=== PATIENT | female | born 1960 | race Caucasian/White ===

== ENCOUNTER 2017-03-18 18:04 | Emergency (ER) | payer BC ==
[~2017-03-18] VITALS: Ht 165.1 cm; Wt 76.0 kg
[~2017-03-18 18:04] MED LIST: AMIT10TA6 PO; HYDR-906 PO; MAG-19 PO; OMEP20CA16 PO; ONDA4TAB14 PO
[2017-03-18 18:09] VITALS: Ht 165.1 cm; Wt 76.0 kg
--- NOTE | 2017-03-18 23:33 | ERA ---
ER Documentation Chief Complaint Date/Time DATE: 03/18/17 TIME: 23:32 Chief Complaint Bloody stool HPI The patient is a 57-year-old female, presenting to the ER because of bloody stool this morning, bright red blood. She denies similar symptoms previously, denies hemorrhoids, constipation. She denies fever, chills, neck pain, chest pain, dyspnea, abdominal pain, dysuria, diarrhea. She had headache yesterday but denies any headache now. She takes Aleve intermittently for her discomfort. She does not smoke nor drink Past medical history: Depression Past surgical history: None ROS All systems reviewed and are negative except as per history of present illness. Medications Home Meds Reported Medications Amitriptyline Hcl* (Amitriptyline Hcl*) 10 Mg Tablet, 20 MG PO QHS, #60 TAB 03/19/17 Discontinued Reported Medications Amitriptyline Hcl* (Amitriptyline Hcl*) Unknown Strength Tablet, PO QHS, #60 TAB 08/17/16 Discontinued Scripts Magaldrate/Simethicone* (Mylanta*) 355 Ml Susp, 30 ML PO QID Y for GASTROINTESTINAL UPSET, #1 BOTTLE Prov:CORRIE ALCAZAR NP 08/17/16 Omeprazole* (Omeprazole*) 20 Mg Capsule.dr, 20 MG PO DAILY, #30 Prov:CORRIE ALCAZAR NP 08/17/16 Ondansetron (Ondansetron Odt) 4 Mg Tab.rapdis, 4 MG PO Q8 Y for NAUSEA AND/OR VOMITING, #30 TAB Prov:CORRIE ALCAZAR NP 08/17/16 Hydrocodone/Acetaminophen ([place] 5-325 Tablet) 1 Each Tablet, 1 TAB PO Q6H Y for PAIN, #20 TAB Prov:CORRIE ALCAZAR NP 08/17/16 Allergies Allergies: Coded Allergies: No Known Allergies (Verified Allergy, Mild, 03/19/17) PMhx/Soc History of Surgery: No Anesthesia Reaction: No Hx Neurological Disorder: No Hx Respiratory Disorders: No Hx Cardiac Disorders: No Hx Miscellaneous Medical Probl: No Hx Alcohol Use: No Hx Substance Use: No Hx Tobacco Use: No Physical Exam Vitals Vital Signs Date Time Temp Pulse Resp B/P Pulse Ox O2 Delivery O2 Flow Rate FiO2 03/18/17 18:09 99.1 101 20 131/78 98 Physical Exam Const: No acute distress. Head: Atraumatic. Eyes: Normal Conjunctiva. ENT: Normal External Ears, Nose and Mouth. Neck: Full range of motion. No meningismus. Resp: Clear to auscultation bilaterally. Cardio: Regular rate and rhythm, no murmurs. Abd: Soft, non distended, normal bowel sounds, non tender. Skin: No petechiae or rashes. Back: No midline or flank tenderness. Ext: No cyanosis, or edema. Neur: Awake and alert. No focal deficit Psych: Normal Mood and Affect. Result Diagram: 03/18/17 2351 03/18/17 2351 Results 24 hrs Laboratory Tests Test 03/18/17 23:51 White Blood Count 4.310^3/ul Red Blood Count 4.4810^6/ul Hemoglobin 13.3g/dl Hematocrit 39.9% Mean Corpuscular Volume 89.1fl Mean Corpuscular Hemoglobin 29.7pg Mean Corpuscular Hemoglobin Concent 33.3g/dl Red Cell Distribution Width 13.8% Platelet Count 21397^3/UL Mean Platelet Volume 9.4fl Neutrophils % 77.5% Lymphocytes % 15.3% Monocytes % 6.5% Eosinophils % 0.2% Basophils % 0.0% Nucleated Red Blood Cells % 0.0/100WBC Neutrophils # 3.410^3/ul Lymphocytes # 0.710^3/ul Monocytes # 0.310^3/ul Eosinophils # 0.010^3/ul Basophils # 0.010^3/ul Nucleated Red Blood Cells # 0.010^3/ul Prothrombin Time 12.9Sec Prothrombin Time Ratio 1.0 INR International Normalized Ratio 0.97 Activated Partial Thromboplast Time 30.1Sec Sodium Level 138mmol/L Potassium Level 3.5mmol/L Chloride Level 105mmol/L Carbon Dioxide Level 27mmol/L Anion Gap 10 Blood Urea Nitrogen 11mg/dl Creatinine 0.52mg/dl Glucose Level 111mg/dl Calcium Level 8.7mg/dl Procedures/[facility] MEDICAL MAKING DECISION: The patient is a 57-year-old female, presenting with acute hematochezia. There is no evidence of acute GI bleed. She is stable for outpatient follow-up The differential diagnoses considered include but are not limited to hemorrhoids , rectal fissure, gastritis, peptic ulcer disease, esophageal varices, [place] tear, carcinoma, polyp, hemorrhoid, fissure, diverticulosis, angiodysplasia. Departure Diagnosis: Primary Impression: Hematochezia Condition: Good Comments I discussed the findings with the patient. I advised the patient to follow-up with the primary physician in about 1-2 days for immediate referral to gastroenterology for colonoscopy, sooner if needed and return if any concern. The patient's blood pressure was elevated (>120/80) but appears stable without evidence of hypertension emergency or urgency. The patient was counseled about the risks of hypertension and urged to pursue outpatient monitoring and therapy within a week with their primary care physician. CAROLE GILLILAND MD March 18, 2017 23:33
[2017-03-19 00:04] LABS: ADD SCAN DIFF NO
[2017-03-19 00:06] LABS: EOSINOPHILS % 0.2 % (0.0-7.0); HEMATOCRIT 39.9 % (37.0-47.0); HEMOGLOBIN 13.3 g/dl (12.0-16.0); LYMPHOCYTES # 0.7 10^3/ul (0.8-2.9); LYMPHOCYTES % 15.3 % (15.0-51.0); MEAN CORPUSCULAR HEMOGLOBIN 29.7 pg (29.0-33.0); MEAN CORPUSCULAR HGB CONC 33.3 g/dl (32.0-37.0); MEAN CORPUSCULAR VOLUME 89.1 fl (82.0-101.0); MEAN PLATELET VOLUME 9.4 fl (7.4-10.4); MONOCYTE # 0.3 10^3/ul (0.3-0.9); MONOCYTES % 6.5 % (0.0-11.0); NEUTROPHIL # 3.4 10^3/ul (1.6-7.5); NEUTROPHILS % 77.5 % (39.0-77.0); PLATELET COUNT 243 10^3/UL (140-415); RED BLOOD COUNT 4.48 10^6/ul (4.20-5.40); RED CELL DISTRIBUTION WIDTH 13.8 % (11.5-14.5); WHITE BLOOD COUNT 4.3 10^3/ul (4.8-10.8)
[2017-03-19 00:27] LABS: CALCIUM 8.7 mg/dl (8.4-10.2); CREATININE 0.52 mg/dl (0.44-1.00); POTASSIUM 3.5 mmol/L (3.5-5.1)
[2017-03-19 00:40] LABS: INR 0.97; PROTIME 12.9 Sec (12.2-14.2)
[2017-03-19 00:41] LABS: PARTIAL THROMBOPLASTIN TIME 30.1 Sec (25.0-35.0)
[2017-03-19] MEDS ORDERED: AMIT10TA6 PO (00:47)
[2017-03-19 02:00] VITALS: BP 123/81; PULSE 83; RESP 16
== END 2017-03-19 03:21 | disposition home or self-care (01) ==
LOC: E/R 18:04
DX: K92.1 Melena (principal); Z98.61 Coronary angioplasty status
CPT/HCPCS: 36415; 80048; 85025; 85610; 85730; 86850; 86900; 86901; 99283

== ENCOUNTER 2017-10-22 13:36 | Outpatient (CLI) | payer BC ==
[~2017-10-22] VITALS: Ht 160 cm; Wt 73.6 kg
[~2017-10-22 13:36] MED LIST changes: -HYDR-906 PO; -MAG-19 PO; -OMEP20CA16 PO; -ONDA4TAB14 PO
[2017-10-22 14:01] VITALS: BP 121/68; PULSE 79; RESP 16
[2017-10-22] MEDS ORDERED: ATOR20TA38 PO (14:01)
[2017-10-22] MEDS ORDERED: AMIT25TA9 PO (14:01)
[2017-10-22] MEDS ORDERED: ASPI-664 PO (14:01)
[2017-10-22 14:02] VITALS: Ht 160 cm; Wt 73.6 kg
--- NOTE | 2017-10-22 14:45 | PN ---
Date/Time of Note Date/Time of Note DATE: 10/22/17 TIME: 14:39 Outpatient Progress Note Chief Complaint TIA/hyperlipidemia/depression HPI TIA/this 57-year-old female was recently admitted with numbness of left side of the face, patient was evaluated and treated, patient on aspirin and Lipitor, Patient does not have any tingling or numbness or any weakness or difficulty in speech, no difficulty in walking, no weakness of upper and lower extremity muscles, Hyperlipidemia/no xanthoma, on Lipitor, no cramps, Depression/no history of any suicidal idea, at present no depression, Review of Systems Const: No Fever, no chills, no Wt. loss, no Fatigue, normal appetite, no diaphoresis. Eyes: No pain, no discharge, no redness, no visual change, no foreign body. ENT: No pain, no bleeding, no congestion, no sore throat, no dysphagia, no discharge or rhinitis. Lymph: No adenopathy, no tender nodes, no lymphedema. Resp: No SOB, no cough, no sputum, no wheezing, no chest pain. CV: No chest pain, no palpitaions, no MCKEON, no PND, no edema. GI: Normal appetite, no pain, no nausea, no vomiting, no diarrhea, no blood, no constipation. : No frequency, no urgency, no dysuria, no hematuria, no flank pain, no discharge, no bleeding. Musc: no back pain, no neck pain, no knee pain, no restricted ROM. Skin: No rash, no skin lesions, no erythema, no laceration, no bruising, no pruritus. Neuro: No GREGORY, no dizziness, no tingling or numbness in the face, no syncope, no seizure, no focal-weakness. Endo: No polyuria, no polydypsia, no dry-skin, no temp-intolerance. Psych: No hallucinations, no depression, no anxiety, no suicidal ideation. Ext: No edema, no pain, no ulcer, no weakness. Physical Exam Vital Signs Date Time Temp Pulse Resp B/P Pulse Ox O2 Delivery O2 Flow Rate FiO2 10/22/17 14:01 97.8 79 16 121/68 100 Room Air General Appearance: A 57 year-old female who appears well-developed, well- nourished, in no acute distress. HEENT: Head normocephalic, atraumatic. Pupils equal, round, reactive to light and accommodate. Sclerae are no jaundice. Nasal turbinates pink without erythema or nasal discharge. Mucous membranes pink and moist without lesions. Oropharynx clear without any exudate or discharge. NECK: Supple. Trachea midline, No thyromegaly, No cervical lymphadenopathy, No mass, No carotid bruits, No JVD, Carotid pulses 2+ bilaterally. PULMONARY: Clear to auscultaion bilaterally, No retractions, Chest expansion symmetric bilaterally, no rales, no ronchi, no dulness on percussion. CARDIAC: Normal SI and S2, Regular rate and rythm, no murmur, gallop, or rub. GASTROINTESTINAL: Abdomen is soft, non-tender, Non Rigid, No distention, Positive bowel sounds x4 quadrants, Liver normal. SKIN: Warm, dry, no rash, no bruise, no echmosis. EXTREMITIES: Bilateral lower extremities normal, no edema, no phlabitus, pulse palpable, no contracture. MUSCULOSKELETAL: Spine Normal, Non-tender, Normal range of motion, No swelling, no deformity, no clubbing, or cyanosis, the patient has no edema to bilateral lower extremities, dorsalis pedis pulses palpable bilaterally. NEUROLOGIC: The patient is awake, alert, oriented, responding to yes/no questions appropriately, moving all extremities, cranial nerve intact, normal strenght, normal power, normal coordination, normal gait. Allergies Coded Allergies: No Known Allergies (Verified Allergy, Mild, 03/19/17) PMH TIA/hyperlipidemia/depression Social Hx No smoking no drinking, Family Hx Noncontributory Assessment/Plan Impression TIA/hyperlipidemia/history of depression Plan Patient education done about her condition and disease, Patient to follow with the primary care physician, and monitor for a bowel problem, and patient advised if any tingling numbness weakness slurred speech immediately go to the emergency room, Patient to continue aspirin and Lipitor, Patient advised routine laboratory on regular basis, Patient had a MRI which showed no acute infarct but with scattered hyperintensity suspicious for demyelinating disease, Patient advised to repeat MRI per primary care physicians or neurologist, if any is weakness or any suspicious of demyelinating disease condition to follow with the primary care neurologist, patient was explained the symptoms, Medications Home Meds Reported Medications Atorvastatin Calcium* (Atorvastatin Calcium*) 20 Mg Tablet, 20 MG PO QHS, #30 TAB 10/22/17 Aspirin (Low Dose Aspirin) 81 Mg Tablet.dr, 81 MG PO DAILY, #30 TAB 10/22/17 Amitriptyline Hcl* (Amitriptyline Hcl*) 25 Mg Tablet, 25 MG PO QHS, #30 TAB 10/22/17 Discontinued Reported Medications Amitriptyline Hcl* (Amitriptyline Hcl*) 10 Mg Tablet, 20 MG PO QHS, #60 TAB 03/19/17 GRISELDA BETANCOURT MD Oct 22, 2017 14:45
== END 2017-10-22 15:29 | disposition home or self-care (01) ==
LOC: DCC 13:36
PROVIDERS: ATTEND Internal Medicine
DX: G45.9 Transient cerebral ischemic attack, unspecified (principal); E78.5 Hyperlipidemia, unspecified; F32.9 Major depressive disorder, single episode, unspecified
CPT/HCPCS: G0463